=== PATIENT | male | born 1995 | race Caucasian/White ===

== ENCOUNTER 2016-11-01 14:30 | Emergency (ER) | payer OTHER ==
[2016-11-01] MEDS ORDERED: Acetaminophen/HYDROcodone 325-5 MG Tab PO ONE (14:31)
[2016-11-01 14:40] VITALS: BP 130/98
--- NOTE | 2016-11-01 14:43 | EDM.PDOC ---
ED HPI GENERAL MEDICAL PROBLEM - General Chief Complaint: Upper Extremity Injury/Pain Stated Complaint: hand injury Time Seen by Provider: 11/01/16 14:30 Source of Information: Reports: Patient History Limitations: Reports: No Limitations - History of Present Illness INITIAL COMMENTS - FREE TEXT/NARRATIVE: This patient is a 21 year old male that presents to the ER. Patient reports he was usinga drill and it turned his right hand. Patient reports he has pain, swellnig, tenderness, and cracking sensation to the right hand along 3rd,4th distal, mid metacarpals. Patient denies nohemy of the fingers or wrists. Patient does have full ROM, but with pain at the site. Patient pulses +2, cap refill <2 sec, sensation intact, motr intact with pain, neurovascular intact. Onset: Today Location: Reports: Upper Extremity, Right Front/Back Body Image: 1 - pain, tenderness, swelling. Quality: Reports: Throbbing Severity: Mild Improves with: Reports: Immobilization Worsens with: Reports: Movement Associated Symptoms: Reports: No Other Symptoms. Denies: Confusion, Chest Pain , Cough, cough w sputum, Diaphoresis, Fever/Chills, Headaches, Loss of Appetite , Malaise, Nausea/Vomiting, Rash, Seizure, Shortness of Breath, Syncope, Weakness Right Hand Pain Score (Numeric/FACES): 8 - Related Data Allergies Allergy/AdvReac Type Severity Reaction Status Date / Time No Known Allergies Allergy Verified 11/01/16 15:12 Home Meds: Home Meds . [No Known Home Meds] 11/01/16 [History] Review of Systems - Review of Systems Review Of Systems: See Below Constitutional: Reports: No Symptoms Eyes: Reports: No Symptoms Ears: Reports: No Symptoms Nose: Reports: No Symptoms Mouth/Throat: Reports: No Symptoms Respiratory: Reports: No Symptoms Cardiovascular: Reports: No Symptoms GI/Abdominal: Reports: No Symptoms Genitourinary: Reports: No Symptoms Musculoskeletal: Reports: Hand Pain (right hand) Skin: Reports: No Symptoms Neurological: Reports: No Symptoms Psychiatric: Reports: No Symptoms ED EXAM, GENERAL - Physical Exam Exam: See Below Exam Limited By: No Limitations General Appearance: Alert, WD/WN, No Apparent Distress Respiratory/Chest: No Respiratory Distress, Lungs Clear, Normal Breath Sounds, No Accessory Muscle Use Cardiovascular: Normal Peripheral Pulses, Regular Rate, Rhythm, No Gallop, No JVD, No Murmur, No Rub Peripheral Pulses: 2+: Radial (R) Extremities: Normal Range of Motion, No Pedal Edema, Normal Capillary Refill, Other (Pain, tenderness, swelling, crepititus right hand 3rd, 4th metacarpal distal/mid shafts region. ROM intact. With pain. ) Neurological: Alert, Oriented, Normal Cognition, Normal Gait, No Motor/Sensory Deficits Psychiatric: Normal Affect, Normal Mood Skin Exam: Warm, Dry, Intact, Normal Color, No Rash ED TRAUMA EXTREMITY PROCEDURES - Splinting Right Upper Extremity Splint Site: Right hand Pre-Procedure NV Status: Normal Post-Procedure NV Status: Normal Splint Material: Fiberglass Splint Design: Boxer Splint Applied & Form Fitted By: Provider Provider Post-Splint Application NV Check: NV Status Normal, Good Position Complications: No Course - Vital Signs Last Recorded V/S: Last Vital Signs Temp 97.9 F 11/01/16 14:35 Pulse 76 11/01/16 14:35 Resp 16 11/01/16 14:35 BP 130/98 H 11/01/16 14:35 Pulse Ox 98 11/01/16 14:35 - Orders/Labs/Meds Orders: Active Orders 24 hr Category Date Time Status Hand Comp Min 3V Rt [CR] Stat Exams 11/01/16 14:38 Taken Meds: Medications Discontinued Medications Generic Name Dose Route Start Last Admin Trade Name Fauzia PRN Reason Stop Dose Admin Hydrocodone Bitart/Acetaminophen 2 packet 11/01/16 14:51 Take Home: Acetaminophen/Hydrocod, 2 Tab Pack PO 11/01/16 14:52 ONETIME ONE - Radiology Interpretation Free Text/Narrative:: Right hand: Fracture 4th midshaft metacarpal, displaced. Soft tissue swelling, no dislocations. Departure - Departure Time of Disposition: 14:49 Disposition: Home, Self-Care 01 Condition: Good Clinical Impression: Fracture of metacarpal bone Qualifiers: Encounter type: initial encounter Metacarpal bone: fourth Fracture type: closed Metacarpal location: shaft Fracture alignment: displaced Laterality: right Qualified Code(s): S62.324A - Displaced fracture of shaft of fourth metacarpal bone, right hand, initial encounter for closed fracture - Discharge Information Instructions: Cast or Splint Care, [id number], Metacarpal Fracture, Easy-to- Read Forms: ED Department Discharge Additional Instructions: Followup with orthopedic by calling clinic office tomorrow for appointment: [facility] [phone] Tell [facility] you have a Fracture of the 4th metacarpal with displacement Return to the ER for worsening of condition or any emergent concerns Followup with your primary care provider Rest Ice Elevate Leave splint in place until seen by orthopedic Shaina 5/325mg 1-2 pills every 4-6 hours as needed for pain #4 take home; #15 no refill - My Orders Last 24 Hours: My Active Orders 11/01/16 14:38 Hand Comp Min 3V Rt [CR] Stat - Assessment/Plan Last 24 Hours: My Active Orders 11/01/16 14:38 Hand Comp Min 3V Rt [CR] Stat Plan: PLEASE SEE RN NOTE FOR PFHS.
[2016-11-01] MEDS ORDERED: Take Home: Acetaminophen/HYDROcodone 325-5 MG, 2 Tab Pack PO ONE (14:51)
== END 2016-11-01 15:35 | disposition home or self-care (01) ==
LOC: CC.ED 14:30
DX: S62.324A Displaced fracture of shaft of fourth metacarpal bone, right hand, initial encounter for closed fracture (principal); X58.XXXA Exposure to other specified factors, initial encounter
CPT/HCPCS: 29125; 73130; 99283; A9270

== ENCOUNTER 2018-12-20 07:38 | Emergency (ER) | payer OTHER, BC ==
[2018-12-20] MEDS ORDERED: Tetracaine HCl/PF 0.5% 4 ML Bottle EYEBOTH ONE (07:39)
[2018-12-20 08:02] VITALS: BP 134/75; PULSE 61
[2018-12-20] MEDS: Tetracaine HCl/PF 0.5% 4 ML Bottle EYELF ONE (08:05)
--- NOTE | 2018-12-20 08:12 | EDM.PDOC ---
ED HPI GENERAL MEDICAL PROBLEM - General Chief Complaint: Eye Problems Stated Complaint: LT EYE SOMETHING IN IT Time Seen by Provider: 12/20/18 08:02 Source of Information: Reports: Patient History Limitations: Reports: No Limitations - History of Present Illness INITIAL COMMENTS - FREE TEXT/NARRATIVE: Patient presents to ER with pain in his left eye. Was grinding on a metal ladder 2 days ago, notes a metal object yet still in his eye. Notes the pain worsened last night and this am. Eye is very red and tearing. Having a fair amount of discomfort. Denies any vision changes except eye gets a bit blurry with all the tearing. Last tetanus was a few months ago. Onset: Gradual Onset Date: 12/18/18 Duration: Day(s): Location: Reports: Face Quality: Reports: Burning Severity: Moderate Improves with: Reports: None Associated Symptoms: Reports: No Other Symptoms Left Eye Pain Score (Numeric/FACES): 5 - Related Data Allergies Allergy/AdvReac Type Severity Reaction Status Date / Time No Known Allergies Allergy Verified 12/20/18 08:02 Home Meds: Home Meds . [No Known Home Meds] 11/01/16 [History] Past Medical History - Past Health History Medical/Surgical History: Denies Medical/Surgical History Social & Family History - Tobacco Use Smoking Status *Q: Unknown Ever Smoked - Caffeine Use Caffeine Use: Reports: Soda ED ROS GENERAL - Review of Systems Review Of Systems: ROS reveals no pertinent complaints other than HPI. ED EXAM GENERAL W FULL EYE - Physical Exam Exam: See Below Exam Limited By: No Limitations General Appearance: Alert, WD/WN, No Apparent Distress Eye Exam: Left Eye: Foreign Body (Has small metal fragment at 6 o'clock), Bilateral Eye: EOMI, PERRL Eyelids: Bilateral: Normal Appearance Conjunctiva & Sclera: Left: Injected Extraocular Movements: Bilateral: Intact Pupils: Normal Accommodation ED EYE w/ Add Procedure - Eye Procedure Alcaine Drops Administered: Yes Eye FB Removal: Removal w/ Needle (Able to remove small fragment of metal from eye but portion remaining) Progress: REmoved small foreign object but due to resistance, referred patient to eye doctor for removal with a chelsey. Contacted Dr. Banda's office, able to see directly from ER. Patient in agreement with that. Course - Vital Signs Last Recorded V/S: Last Vital Signs Temp 97.6 F 12/20/18 07:50 Pulse 61 12/20/18 07:50 Resp 16 12/20/18 07:50 BP 134/75 12/20/18 07:50 Pulse Ox 99 12/20/18 07:50 - Orders/Labs/Meds Meds: Medications Discontinued Medications Generic Name Dose Route Start Last Admin Trade Name Fauzia PRN Reason Stop Dose Admin Tetracaine HCl 3 ml 12/20/18 08:04 12/20/18 08:05 Tetracaine 0.5% Steri-Unit [place] EYELF 12/20/18 08:05 3 drop ASDIRECTED ONE Administration Tetracaine HCl 4 ml 12/20/18 07:39 Tetracaine 0.5% Steri-Unit [place] EYEBOTH 12/20/18 07:40 .STK-MED ONE Departure - Departure Time of Disposition: 08:10 Disposition: Home, Self-Care 01 Clinical Impression: Foreign body in eye - Discharge Information *PRESCRIPTION DRUG MONITORING PROGRAM REVIEWED*: No *COPY OF PRESCRIPTION DRUG MONITORING REPORT IN PATIENT BETO: No Referrals: PCP,None [Primary Care Provider] - Forms: ED Department Discharge Additional Instructions: 1. Follow up at Dr. Banda's office
== END 2018-12-20 08:25 | disposition home or self-care (01) ==
LOC: CC.ED 07:38
DX: T15.92XA Foreign body on external eye, part unspecified, left eye, initial encounter (principal)
CPT/HCPCS: 65205; 99282

== ENCOUNTER 2020-09-12 18:41 | Emergency (ER) | payer BC, OTHER ==
[2020-09-12 18:53] VITALS: BP 144/81; PULSE 64
--- NOTE | 2020-09-12 19:37 | EDM.PDOC ---
ED HPI GENERAL MEDICAL PROBLEM - General Chief Complaint: Lower Extremity Injury/Pain Stated Complaint: toe injury Time Seen by Provider: 09/12/20 19:00 Source of Information: Reports: Patient History Limitations: Reports: No Limitations - History of Present Illness INITIAL COMMENTS - FREE TEXT/NARRATIVE: Phil is a 25 year old male presents to ER with complaints of left great toe pain. States dropped a 100# slap on his foot yesterday. Normally wears steel toed shoes but is unable to at present due to an ankle bracelet he is required to wear and as a result, only wearing a tennis shoe. Did have discomfort but continued to work. Was hit on the toe again today and then noted more throbbing and bleeding enroute home from [place]. Does have pain with weight bearing. Duration: Day(s):, Constant Location: Reports: Lower Extremity, Left Quality: Reports: Throbbing Severity: Mild Associated Symptoms: Reports: No Other Symptoms Treatments STUNT DOUBLE: Reports: Acetaminophen Left Toe-Hailux Pain Score (Numeric/FACES): 7 - Related Data Allergies Allergy/AdvReac Type Severity Reaction Status Date / Time No Known Allergies Allergy Verified 09/12/20 18:51 Home Meds: Home Meds Escitalopram [Lexapro] 10 mg PO DAILY 09/12/20 [History] Past Medical History - Past Health History Medical/Surgical History: Denies Medical/Surgical History Musculoskeletal History: Reports: Fracture Psychiatric History: Reports: Anxiety - Past Surgical History HEENT Surgical History: Reports: Other (See Below) Other HEENT Surgeries/Procedures: wisdom teeth removal Social & Family History - Tobacco Use Tobacco Use Status *Q: Unknown Ever Used Tobacco - Caffeine Use Caffeine Use: Reports: Soda Review of Systems - Review of Systems Review Of Systems: See Below Musculoskeletal: Reports: Foot Pain Skin: Reports: Wound Neurological: Reports: No Symptoms ED EXAM, GENERAL - Physical Exam Exam: See Below Exam Limited By: No Limitations General Appearance: Alert, WD/WN, No Apparent Distress Extremities: Other (Bruising noted to left great toe. Has open area to base of nail, oozing blood. Significant blood noted under nail bed. Tender to the touch. Is able to flex his toe.) Neurological: Alert, Oriented Course - Vital Signs Last Recorded V/S: Last Vital Signs Temp 97.9 F 09/12/20 18:42 Pulse 64 09/12/20 18:42 Resp 16 09/12/20 18:42 BP 144/81 H 09/12/20 18:42 Pulse Ox 97 09/12/20 18:42 - Orders/Labs/Meds Orders: Active Orders 24 hr Category Date Time Status Toes Great Toe Lt TA [CR] Stat Exams 09/12/20 18:53 Taken - Re-Assessments/Exams Free Text/Narrative Re-Assessment/Exam: 09/12/20 Needle heated and nail popped to release the blood after cleansing with normal saline. Patient tolerated well. Good amount of blood expressed from blood. Toe wrapped with gauze. Departure - Departure Time of Disposition: 19:35 Disposition: Home, Self-Care 01 Condition: Good Clinical Impression: Toe contusion Qualifiers: Encounter type: initial encounter Toe: great toe Damage to nail status: with damage Laterality: left Qualified Code(s): S90.212A - Contusion of left great toe with damage to nail, initial encounter - Discharge Information *PRESCRIPTION DRUG MONITORING PROGRAM REVIEWED*: No *COPY OF PRESCRIPTION DRUG MONITORING REPORT IN PATIENT BETO: No Instructions: Foot Contusion Referrals: PCP,None [Primary Care Provider] - Forms: ED Department Discharge Additional Instructions: 1. Soak toe tonight 2-3 times in soap and water 2. Elevate toe to help reduce swelling 3. Keep clean and dry, watch for increased redness, foul odor, drainage or increased lamar 4. Wear good supportive shoe if able 5. Will contact you if any concerns with your xray 6. Call with any questions or concerns. Sepsis Event Note (ED) - Evaluation Sepsis Screening Result: No Definite Risk - Focused Exam Vital Signs: Vital Signs Temp Pulse Resp BP Pulse Ox 09/12/20 18:42 97.9 F 64 16 144/81 H 97 - My Orders Last 24 Hours: My Active Orders 09/12/20 18:53 Toes Great Toe Lt TA [CR] Stat - Assessment/Plan Last 24 Hours: My Active Orders 09/12/20 18:53 Toes Great Toe Lt TA [CR] Stat
== END 2020-09-12 19:40 | disposition home or self-care (01) ==
LOC: CC.ED 18:41
DX: S90.212A Contusion of left great toe with damage to nail, initial encounter (principal); W20.8XXA Other cause of strike by thrown, projected or falling object, initial encounter; Y92.89 Other specified places as the place of occurrence of the external cause; Y99.0 Civilian activity done for income or pay
CPT/HCPCS: 11740; 73660-TA; 99283-25